=== PATIENT | male | born 1970 | race African-American/Black ===

== ENCOUNTER 2019-02-05 03:23 | Emergency (ER) | payer OTHER ==
[~2019-02-05] VITALS: Ht 175.3 cm; Wt 129.3 kg
[2019-02-05] MEDS ORDERED: METFORMIN HCL500 MG PO (04:00)
[2019-02-05 04:24] LABS: CALCIUM 8.9 mg/dL (8.5-10.1); CREATININE 0.9 mg/dL (0.7-1.3); POTASSIUM 3.8 mmol/L (3.5-5.1)
[2019-02-05 04:30] LABS: ALBUMIN 3.6 g/dL (3.4-5.0); TOTAL BILIRUBIN 0.5 mg/dL (<0.1-1.0); TOTAL PROTEIN 7.4 g/dL (6.4-8.2)
[2019-02-05 04:41] LABS: ABSOLUTE NEUTROPHILS 7.3 thou/uL (1.4-8.2); BASOPHILS 0.4 % (0.0-2.0); EOSINOPHILS 0.7 % (0.0-3.0); HEMATOCRIT 39.5 % (42.0-52.0); HEMOGLOBIN 13.2 gm/dL (14.0-18.0); LYMPHOCYTES 18.8 % (24.0-44.0); MCH 26.9 pg (26.0-34.0); MCHC 33.4 g/dL (28.0-37.0); MCV 80.5 fL (80.0-100.0); MONOCYTES 5.2 % (1.0-8.0); PLATELET COUNT 246 thou/uL (150-400); POLYS 74.9 % (36.0-66.0); RBC 4.91 mil/uL (4.50-6.00); RDW 14.1 % (10.5-14.5); WBC 9.7 thou/uL (4.0-11.0)
[2019-02-05 05:22] LABS: URINE BILIRUBIN NEGATIVE (Negative); URINE BLOOD NEGATIVE (Negative); URINE CLARITY CLEAR; URINE COLOR YELLOW; URINE GLUCOSE-RANDOM* 1+ (Negative); URINE KETONES NEGATIVE (Negative); URINE LEUKOCYTES-REFLEX NEGATIVE (Negative); URINE NITRITE-REFLEX NEGATIVE (Negative); URINE PROTEIN (DIPSTICK) NEGATIVE (Negative); URINE UROBILINOGEN 0.2 E.U./dl (0.2-1.0)
[2019-02-05] MEDS ORDERED: ULTRAM 50MG TAB50 MG PO (06:24)
[2019-02-05] MEDS ORDERED: BENTYL 20 MG TA20 M1 PO (06:24)
[2019-02-05] MEDS ORDERED: ZOFRAN ODT4 MG PO (06:24)
[2019-02-05 07:15] VITALS: BP 109/71
[2019-02-06] MEDS ORDERED: BENADRYL ITCH28.3 G1 TOP (10:23)
[2019-02-06] MEDS ORDERED: ANTI-ITCH28 G2 TOP (10:23)
== END 2019-02-05 07:15 | disposition home or self-care (01) ==
LOC: ER 03:23
PROVIDERS: Emergency Medicine
DX: K52.9 Noninfective gastroenteritis and colitis, unspecified (principal); E11.9 Type 2 diabetes mellitus without complications; E78.5 Hyperlipidemia, unspecified

== ENCOUNTER 2019-02-06 10:00 | Emergency (ER) | payer OTHER ==
[~2019-02-06] VITALS: Ht 175.3 cm; Wt 129.3 kg
[2019-02-06 10:00] VITALS: BP 135/85
[~2019-02-06 10:00] MED LIST: BENTYL 20 MG TA20 M1 PO; METFORMIN HCL500 MG PO; ULTRAM 50MG TAB50 MG PO; ZOFRAN ODT4 MG PO
[2019-02-06] MEDS ORDERED: ANTI-ITCH28 G2 TOP (10:23)
[2019-02-06] MEDS ORDERED: BENADRYL ITCH28.3 G1 TOP (10:23)
== END 2019-02-06 10:42 | disposition home or self-care (01) ==
LOC: ER 10:00
DX: L25.9 Unspecified contact dermatitis, unspecified cause (principal); E11.9 Type 2 diabetes mellitus without complications; E78.5 Hyperlipidemia, unspecified